=== PATIENT | female | born 1935 | race Caucasian/White ===

== ENCOUNTER 2018-07-16 08:35 | Emergency (ER) | payer BC, MEDICARE, OTHER ==
[2018-07-16] MEDS ORDERED: Ketorolac 15 MG/ML SDV IVPUSH ONE (09:10)
[2018-07-16] MEDS ORDERED: Sodium Chloride 0.9% 10 ML Syringe FLUSH PRN (09:10)
[2018-07-16] MEDS ORDERED: Cyclobenzaprine 10 MG Tab PO ONE (09:11)
--- NOTE | 2018-07-16 10:49 | CR ---
Lumbar spine: AP, lateral and coned-down lateral views of centered to the lumbosacral junction were obtained. Comparison: No prior lumbar spine imaging. Vertebral body heights and disc spaces are maintained within the lumbar spine. Several slight endplate concavities are noted within the lower thoracic spine. Scattered endplate osteophytes are seen. Pedicles are intact. Visualized transverse and spinous processes are intact. Atherosclerotic calcification is noted within the abdominal aorta and iliac vessels. Surgical clips are seen from prior cholecystectomy. Impression: 1. Mild endplate concavities within the lower thoracic spine. 2. Mild scattered endplate osteophytes and other incidental findings. Diagnostic code #2
--- NOTE | 2018-07-16 10:49 | CR ---
Pelvis and left hip: AP view of the pelvis was obtained as well as AP and slight frog leg lateral views of the left hip. Bony structures are osteopenic. Sacroiliac joints show minimal inferior sclerosis. No fracture, dislocation or other bony abnormality is appreciated. Impression: 1. Slight degenerative change within the inferior sacroiliac joints and osteopenia. 2. AP pelvis and two-view left hip study is otherwise unremarkable. Diagnostic code #2
--- NOTE | 2018-07-16 11:41 | EDM.PDOC ---
ED HPI GENERAL MEDICAL PROBLEM - General Chief Complaint: Back Pain or Injury Stated Complaint: BACK AND LEG PAIN/UNABLE TO WALK Time Seen by Provider: 07/16/18 08:50 Source of Information: Reports: Patient, Family History Limitations: Reports: No Limitations - History of Present Illness INITIAL COMMENTS - FREE TEXT/NARRATIVE: The patient presents with left leg pain. She flew here a couple days ago to visit family and she developed pain in her left low back and buttocks. She did not injure her back or leg in any other way. She has no edema or pain in her lower leg. She has not had pain like this. She tried to take some tramadol. That did help a little. She has no history of PE or DVT. She has no numbness, weakness, bowel or bladder problems. Onset: Gradual Duration: Day(s): Location: Reports: Back (Left into her left buttocks) Severity: Moderate Improves with: Reports: Immobilization Worsens with: Reports: Movement Associated Symptoms: Reports: No Other Symptoms Left Lower Back Pain Score (Numeric/FACES): 10 - Related Data Allergies Allergy/AdvReac Type Severity Reaction Status Date / Time pegfilgrastim [From Neulasta] Allergy Fever Verified 07/16/18 09:00 Sulfa (Sulfonamide Allergy Fever Verified 07/16/18 09:00 Antibiotics) Home Meds: Home Meds Cyclobenzaprine [Flexeril] 5 mg PO Q8HR PRN #20 tab 07/16/18 [Rx] Naproxen [Naprosyn] 500 mg PO Q12HR PRN #20 tab 07/16/18 [Rx] traMADol [Ultram] 50 mg PO Q6H PRN #20 tab 07/16/18 [Rx] Past Medical History HEENT History: Reports: Impaired Vision Cardiovascular History: Reports: Hypertension Musculoskeletal History: Reports: Fibromyalgia Social & Family History - Tobacco Use Smoking Status *Q: Former Smoker Used Tobacco, but Quit: Yes Month/Year Tobacco Last Used: 1975 - Caffeine Use Caffeine Use: Reports: Coffee ED ROS GENERAL - Review of Systems Review Of Systems: See Below Constitutional: Reports: No Symptoms HEENT: Reports: No Symptoms Respiratory: Reports: No Symptoms Cardiovascular: Reports: No Symptoms Endocrine: Reports: No Symptoms GI/Abdominal: Reports: No Symptoms : Reports: No Symptoms Musculoskeletal: Reports: Back Pain (Left buttock pain) ED EXAM,LOWER BACK PAIN/INJURY - Physical Exam Exam: See Below Exam Limited By: No Limitations General Appearance: Alert, No Apparent Distress Ears: Normal External Exam Nose: Normal Inspection Head: Atraumatic, Normocephalic Neck: Normal Inspection Respiratory/Chest: No Respiratory Distress, Lungs Clear, Normal Breath Sounds Cardiovascular: Regular Rate, Rhythm, No Edema, No Murmur GI/Abdominal: Soft, Non-Tender, No Organomegaly, No Mass Back Exam: Other (Mild tenderness to the left low back) Extremities: Other (Pain upon palpation to the left buttock. Very mild edema to the left leg.) Neurological: Normal Reflexes, No Motor/Sensory Deficits, Oriented x 3 Course - Vital Signs Last Recorded V/S: Last Vital Signs Temp 98.2 F 07/16/18 08:55 Pulse 74 07/16/18 08:55 Resp 16 07/16/18 08:55 BP 167/73 H 07/16/18 08:55 Pulse Ox 97 07/16/18 08:55 - Orders/Labs/Meds Orders: Active Orders 24 hr Category Date Time Status Peripheral IV Care [RC] . DIRECTED Care 07/16/18 09:10 Active VL Duplex Lwr Ext Veins Ltd Lt [US] Stat Exams 07/16/18 10:15 Taken Sodium Chloride 0.9% [Saline Flush] Med 07/16/18 09:10 Active 10 ml FLUSH ASDIRECTED PRN Peripheral IV Insertion Adult [OM.PC] Routine Oth 07/16/18 09:10 Ordered Medication Orders Sodium Chloride (Saline Flush) 10 ml FLUSH ASDIRECTED PRN PRN Reason: Keep Vein Open Last Admin: 07/16/18 09:27 Dose: 10 ml Labs: Laboratory Tests 07/16/18 07/16/18 Range/Units 09:42 09:42 WBC 7.79 (3.98-10.04) K/mm3 RBC 3.77 L (3.98-5.22) M/mm3 Hgb 10.6 L (11.2-15.7) gm/L Hct 32.7 L (34.1-44.9) % MCV 86.7 (79.4-94.8) fl MCH 28.1 (25.6-32.2) pg MCHC 32.4 (32.2-35.5) g/dl RDW Std Deviation 46.1 (36.4-46.3) fL Plt Count 344 (182-369) K/mm3 MPV 9.0 L (9.4-12.3) fl Neut % (Auto) 79.6 H (34.0-71.1) % Lymph % (Auto) 12.3 L (19.3-51.7) % [place] % (Auto) 7.6 (4.7-12.5) % Eos % (Auto) 0.1 L (0.7-5.8) Baso % (Auto) 0.3 (0.1-1.2) % Neut # (Auto) 6.20 H (1.56-6.13) K/mm3 Lymph # (Auto) 0.96 L (1.18-3.74) K/mm3 [place] # (Auto) 0.59 H (0.24-0.36) K/mm3 Eos # (Auto) 0.01 L (0.04-0.36) K/mm3 Baso # (Auto) 0.02 (0.01-0.08) K/mm3 D-Dimer, Quantitative 0.79 H (0.19-0.50) mg/L Meds: Medications Generic Name Dose Route Start Last Admin Trade Name Freq PRN Reason Stop Dose Admin Sodium Chloride 10 ml 07/16/18 09:10 07/16/18 09:27 Saline Flush FLUSH 10 ml ASDIRECTED PRN Administration Keep Vein Open Discontinued Medications Generic Name Dose Route Start Last Admin Trade Name Freq PRN Reason Stop Dose Admin Cyclobenzaprine HCl 5 mg 07/16/18 09:11 07/16/18 09:26 Flexeril PO 07/16/18 09:12 5 mg ONETIME ONE Administration Hydromorphone HCl 0.5 mg 07/16/18 11:42 07/16/18 11:49 Dilaudid IVPUSH 07/16/18 11:43 0.5 mg ONETIME ONE Administration Ketorolac Tromethamine 15 mg 07/16/18 09:10 07/16/18 09:26 Toradol IVPUSH 07/16/18 09:11 15 mg ONETIME ONE Administration - Re-Assessments/Exams Free Text/Narrative Re-Assessment/Exam: 07/16/18 11:37 I ordered an IV saline lock, toradol 15mg IV, flexeril 5mg PO, labs, and x-rays of her back and left hip. Her Hgb was a little low at 10.6. Her D-dimer was elevated at 0.79. The x-ray of her low back shows mild endplate concavities within the lower thoracic spine and mild scattered endplate osteophytes and other incidental findings. The x-ray of her hip shows slight degenerative change within the inferior sacroiliac joints and osteopenia. AP pelvis and 2 view left hip study is otherwise unremarkable. I also ordered an US of her left leg and it shows no DVT. 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 I will get her on some naprosyn, flexeril and tramadol. 07/16/18 12:04 She got up to use the restroom and had more pain so I ordered dilaudid 0.5mg IV. Departure - Departure Time of Disposition: 11:45 Disposition: Home, Self-Care 01 Condition: Good Clinical Impression: Sciatica Qualifiers: Laterality: left Qualified Code(s): M54.32 - Sciatica, left side Osteoarthritis Qualifiers: Osteoarthritis location: spine Spinal region: unspecified Spinal osteoarthritis complication: unspecified spinal osteoarthritis Qualified Code(s) : M47.9 - Spondylosis, unspecified - Discharge Information *PRESCRIPTION DRUG MONITORING PROGRAM REVIEWED*: No *COPY OF PRESCRIPTION DRUG MONITORING REPORT IN PATIENT [place]: No Prescriptions: Cyclobenzaprine [Flexeril] 5 mg PO Q8HR PRN #20 tab PRN Reason: Pain Naproxen [Naprosyn] 500 mg PO Q12HR PRN #20 tab PRN Reason: Pain traMADol [Ultram] 50 mg PO Q6H PRN #20 tab PRN Reason: Pain Referrals: PCP,Not In Area [Primary Care Provider] - Forms: ED Department Discharge Additional Instructions: Take the tramadol every 6 hours as needed for pain. Take the naprosyn every 12 hours as needed for pain and you can take the flexeril 5mg every 8 hours as needed for pain. Try ice or heat which ever one feels better. Follow up with your doctor in 1 week. - My Orders Last 24 Hours: My Active Orders 07/16/18 09:10 Peripheral IV Care [RC] . DIRECTED Sodium Chloride 0.9% [Saline Flush] 10 ml FLUSH ASDIRECTED PRN Peripheral IV Insertion Adult [OM.PC] Routine 07/16/18 10:15 VL Duplex Lwr Ext Veins Ltd Lt [US] Stat - Assessment/Plan Last 24 Hours: My Active Orders 07/16/18 09:10 Peripheral IV Care [RC] . DIRECTED Sodium Chloride 0.9% [Saline Flush] 10 ml FLUSH ASDIRECTED PRN Peripheral IV Insertion Adult [OM.PC] Routine 07/16/18 10:15 VL Duplex Lwr Ext Veins Ltd Lt [US] Stat
[2018-07-16] MEDS ORDERED: HYDROmorphone 0.5 MG/0.5 ML Syringe IVPUSH ONE (11:42)
--- NOTE | 2018-07-18 10:56 | US ---
Left lower extremity deep venous ultrasound: Duplex and color flow imaging was obtained of the left common femoral, proximal greater saphenous, superficial femoral, popliteal, posterior tibial and peroneal veins. Right common femoral vein was also evaluated. Comparison: No prior venous imaging. Findings: Normal phasic flow, augmentation and compression are seen. Impression: 1. No evidence of deep venous thrombosis within the left lower extremity or right common femoral vein. Diagnostic code #1 I agree with preliminary report issued by [facility] ([facility] report finalized on 07/16/18, 12:48 PM Central Time.
== END 2018-07-16 12:40 | disposition home or self-care (01) ==
LOC: JD.ED 08:35
DX: M47.9 Spondylosis, unspecified (principal); M54.32 Sciatica, left side; I10 Essential (primary) hypertension; Z87.891 Personal history of nicotine dependence; Z88.2 Allergy status to sulfonamides; Z88.8 Allergy status to other drugs, medicaments and biological substances; Z79.899 Other long term (current) drug therapy
CPT/HCPCS: 36415; 72100; 73502; 85025; 85379; 93971; 96374; 96375; 99284; A9270; J1170; J1885